=== PATIENT | female | born 1970 | race African-American/Black ===

== ENCOUNTER 2023-10-28 16:51 | Emergency (ER) | payer SELFPAY ==
[2023-10-28] MEDS: Sodium Chloride 0.9% 2.5 ML Syringe FLUSH PRN (17:24)
[2023-10-28] MEDS: Sodium Chloride 0.9% 10 ML Syringe FLUSH PRN (17:24)
[2023-10-28 17:32] LABS: HEMATOCRIT 36.7 % (37.0-47.0); HEMOGLOBIN 12.4 g/dL (12.0-16.0); MEAN CORPUSCULAR HEMOGLOBIN 30.8 pg (28.0-32.0); MEAN CORPUSCULAR HGB CONC 33.8 g/dL (32.0-36.0); MEAN CORPUSCULAR VOLUME 91.3 fL (83.0-99.0); PLATELET COUNT,PLT 264 K/uL (150-400); RED BLOOD CELL COUNT 4.02 M/uL (4.10-5.30); WHITE BLOOD CELL COUNT,WBC 7.95 K/uL (3.9-11.3)
[2023-10-28 17:43] LABS: INR 0.97 (0.86-1.11); PTT,PARTIAL THROMBOPLSTIN TIME 28.8 SEC (23.9-30.7)
[2023-10-28] MEDS: Aspirin 81 MG Tab.Chew PO STA (17:44)
[2023-10-28 18:19] LABS: CORONAVIRUS COVID-19 NAA NEGATIVE (NEGATIVE); INFLUENZA A NAA NEGATIVE (NEGATIVE); INFLUENZA B NAA NEGATIVE (NEGATIVE)
[2023-10-28 18:22] LABS: BAND ABSOLUTE MAN 0.24; BAND PERCENT MAN 3 %; LYMPHOCYTES PERCENT MAN 44 % (24-44); SEG NEUTROPHILS ABSOLUTE MAN 3.82 K/uL (1.80-7.70); SEG NEUTROPHILS PERCENT MAN 48 % (41-71)
[2023-10-28 18:23] LABS: MONOCYTES PERCENT MAN 5 % (0-8)
[2023-10-28 18:44] LABS: A/G RATIO 0.8 (0.9-1.6); ALANINE AMINOTRANSFERASE,ALT 23 IU/L (14-63); ALBUMIN 3.3 g/dL (3.4-5.0); ALKALINE PHOSPHATASE 57 U/L (46-116); ASPARTATE AMNIOTRANSFERASE,AST 12 IU/L (15-37); BILIRUBIN TOTAL 0.3 mg/dL (0.2-1.0); BLOOD UREA NITROGEN,BUN 10 mg/dL (7.0-18.0); CALCIUM 9.3 mg/dL (8.5-10.1); CARBON DIOXIDE,CO2 25.3 mmol/L (21.0-32.0); CHLORIDE,CL 103 mmol/L (98-107); EST CRCL DRUG DOSING (CG) 17.35 mL/min; ESTIMATED GFR 68 mL/min (>60); GLUCOSE RANDOM 89 mg/dL (74-106); MAGNESIUM 2.2 mg/dL (1.8-2.4); POTASSIUM,K 4.1 mmol/L (3.5-5.1); PROTEIN TOTAL,TP 7.5 g/dL (6.4-8.2); SODIUM,NA 142 mmol/L (136-145)
== END 2023-10-28 20:01 | disposition home or self-care (01) ==
LOC: MW.ED 16:51
DX: R07.9 Chest pain, unspecified (principal); I10 Essential (primary) hypertension; Z75.8 Other problems related to medical facilities and other health care
CPT/HCPCS: 0240U; 36415; 71045; 80053; 83690; 83735; 84484; 85025; 85610; 85730; 93005; 99285; A9270; J3490; 93010; 99283